=== PATIENT | male | born 2000 | race African-American/Black ===

== ENCOUNTER 2023-12-23 01:28 | Emergency (ER) | payer BC ==
[~2023-12-23] VITALS: Ht 182.9 cm; Wt 50.0 kg
[2023-12-23 01:32] VITALS: TEMP 97.6; O2SAT 99
[2023-12-23 02:26] VITALS: BP 172/95; PULSE 70; RESP 16
[2023-12-23] MEDS: IBUPROFEN 600MG TABLET PO ONE (02:26)
[2023-12-23] MEDS ORDERED: AMOX1TAB16 MT (02:37)
[2023-12-23] MEDS: ACETAMINOPHEN 325MG TABLET PO ONE (02:37)
[2023-12-23] MEDS: AMOXICILLIN/POTASSIUM CLAVULANATE 875/125MG TAB PO ONE (02:56)
== END 2023-12-23 02:57 | disposition home or self-care (01) ==
LOC: ER 01:28
DX: K04.7 Periapical abscess without sinus (principal)
CPT/HCPCS: 99284